=== PATIENT | female | born 1935 | race Two or more races ===

== ENCOUNTER 2017-08-07 21:33 | Observation (INO) | payer OTHER ==
[2017-08-07] MEDS ORDERED: NITROGLYCERIN SUBLINGUAL 1/150 0.4 MG TAB ONE (21:58)
[2017-08-07] MEDS ORDERED: NITROGLYCERIN 2% OINTMENT - 1GM PACKET TD ONE ×2 (21:58→21:59)
[2017-08-07] MEDS ORDERED: NITROGLYCERIN SUBLINGUAL 1/150 0.4 MG TAB SL ONE (21:58)
[2017-08-07] MEDS ORDERED: SODIUM CHLORIDE 0.9% 500 ML INFUS.BAG IV ONE (22:01)
--- NOTE | 2017-08-07 22:04 | PDOC ---
History of Present Illness - General Chief Complaint: Nausea/Vomiting Stated Complaint: DIZZINESS, N/V, HTN Time Seen by Provider: 08/07/17 21:51 History Source: Patient, Family - History of Present Illness Initial Comments: 08/07/17 22:02 Pt has HTN today and dizzness and she vomited today after eating pork and rice that was cooked by a friend and given to her 2 days ago. Pt admits to eating salty foods lately; yesterday she attended a wedding and all week she has been eating a small bag of salty chips at work. Timing/Duration: 1 week Severity: moderate Associated Symptoms: reports: nausea/vomiting Beta Lucina Taken at Home(Core Measure): No Beta Lucina Not Indicated at this Time(Core Measure): No Past History - Travel Traveled outside of the country in the last 30 days: No Close contact w/someone who was outside of country & ill: No - Past Medical History Allergies/Adverse Reactions: Allergies Allergy/AdvReac Type Severity Reaction Status Date / Time No Known Allergies Allergy Verified 08/07/17 21:43 Home Medications: Ambulatory Orders Multivitamin W-Minerals/Lutein [Centrum Silver Tablet] 1 each PO 2-3x/wk tablet 04/04/13 Lonnie/D3/Mag11/Zinc/Back End Developer/Diego/Bor [Caltrate 600+D Plus Tablet] 1 each PO ASDIR Nitrofurantoin Monohyd/M-Cryst [Macrobid -] 100 mg PO BID #14 capsule 08/07/17 COPD: No HTN: Yes Hypercholesterolemia: Yes Other medical history: GOUT - Suicide/Smoking/Psychosocial Hx Smoking History: Never smoked Have you smoked in the past 12 months: No Information on smoking cessation initiated: No Hx Alcohol Use: No Drug/Substance Use Hx: No Substance Use Type: None *Physical Exam - Vital Signs Last Vital Signs Temp Pulse Resp BP Pulse Ox 98.5 F 112 H 18 185/86 100 08/07/17 21:40 08/07/17 21:40 08/07/17 21:40 08/07/17 21:40 08/07/17 21:40 Heart Score/ECG Review - History History: Slightly suspicious - Electrocardiogram EKG: Normal - Age Age: >/= 65 - Risk Factors Risk Factors Heart Score: Yes Hx Hypertension - ECG Intrepretation Rhythm: Regular Rhythm ED Treatment Course - LABORATORY CBC & Chemistry Diagram: 08/07/17 22:10 08/07/17 22:10 - RADIOLOGY Radiology Studies Ordered: Category Date Time Status CHEST PA & LAT [RAD] Stat Radiology 08/07/17 21:52 Ordered Medical Decision Making - Medical Decision Making 08/07/17 23:31 Patient Name: CHELA HIGGINBOTHAM THIS IS A PRELIMINARY REPORT FROM [facility] EXAM DATE AND TIME: 2017-08-07 22:22:41 IMAGES: 68 EXAM: CT Head Without Intravenous Contrast CLINICAL HISTORY: dizziness high bp TECHNIQUE: Axial computed tomography images of the head/brain without intravenous contrast. This CT exam was performed using one or more of the following dose reduction techniques: Automated exposure control, Adjustment of the mA and/or kV according to patient size, Use of iterative reconstruction technique. COMPARISON: No relevant prior studies available. FINDINGS: LIMITATIONS: The patient's head is rotated in the gantry which causes artifactual asymmetries to the skull and intracranial contents. BRAIN: Minimal patchy and focal areas of low-attenuation are present in the brain.This is more prominent on the RIGHT. The age of this finding is indeterminate and this may be acute and/or chronic. Followup with MRI should be considered. NO hemorrhage or mass. VENTRICLES: NO acute changes are demonstrated. No ventriculomegaly. BONES/JOINTS: Calvarium and skull base demonstrate NO acute changes. SOFT TISSUES: NO acute changes are demonstrated. VASCULATURE: Mild atherosclerotic vascular calcifications are present. SINUSES: The paranasal sinuses demonstrate NO opacification or fluid levels. MASTOID AIR CELLS: The mastoid air cells and middle ear regions demonstrate NO evidence of fluid or opacification. IMPRESSION: 1. > FINDING CONSIDERED CRITICAL TO PATIENT CARE:Minimal patchy and focal areas of low-attenuation are present in the brain.This is more prominent on the RIGHT. The age of this finding is indeterminate and this may be acute and/or chronic. Followup with MRI should be considered. 2. NO evidence of intracranial hemorrhage or mass. THIS DOCUMENT HAS BEEN ELECTRONICALLY SIGNED *DC/Admit/Observation/Transfer Diagnosis at time of Disposition: Dizziness, nonspecific, Abnormal head CT - Discharge Dispostion Condition at time of disposition: Guarded Decision to Admit order: Yes - Prescriptions Prescriptions: Nitrofurantoin Monohyd/M-Cryst [Macrobid -] 100 mg PO BID #14 capsule - Referrals Referrals: Jason Winters MD [Primary Care Provider] - - Patient Instructions - Post Discharge Activity
[2017-08-07 22:13] LABS: URINE APPEARANCE Clear; URINE BILIRUBIN Negative (NEGATIVE); URINE GLUCOSE (UA) Negative (NEGATIVE); URINE KETONE Negative (NEGATIVE); URINE LEUK ESTERASE Negative (NEGATIVE); URINE NITRITE Negative (NEGATIVE); URINE UROBILINOGEN 0.2 (0.2-1.0)
[2017-08-07 22:18] LABS: URINE COLOR YELLOW; URINE PROTEIN 3+ (NEGATIVE)
[2017-08-07 22:22] LABS: BASO % 0.9 % (0-2.0); EOS % 2.9 % (0-4.5); HEMATOCRIT 33.5 % (32.4-45.2); HEMOGLOBIN 11.3 GM/dl (10.7-15.3); LYMPH % 28.5 % (8-40); MCH 32.3 pg (25.7-33.7); MCHC 33.8 g/dl (32.0-36.0); MEAN CELL VOLUME 95.6 fl (80-96); MEAN PLT VOLUME 7.6 fl (7.5-11.1); NEUT % 64.7 % (42.8-82.8); PLATELET COUNT 225 K/MM3 (134-434); RDW 14.9 % (11.6-15.6); WHITE BLOOD COUNT 6.1 K/mm3 (4.0-10.8)
[2017-08-07 22:37] LABS: ACTIVATED PTT 32.3 SECONDS (24.0-38.9)
[2017-08-07 22:38] LABS: ALBUMIN 4.2 g/dl (3.5-5.0); ALK PHOS 77 U/L (32-92); ANION GAP 9 (8-16); BLOOD UREA NITROGEN 32 mg/dl (7-18); CALCIUM 9.6 mg/dl (8.4-10.2); CHLORIDE 103 mmol/L (98-107); CO2 23 mmol/L (22-28); CREATININE 1.5 mg/dl (0.6-1.3); GLUCOSE,RANDOM 134 mg/dl (74-106); POTASSIUM 4.3 mmol/L (3.5-5.1); SGOT/AST 32 U/L (10-42); SGPT/ALT 22 U/L (10-40); SODIUM 135 mmol/L (136-145); TOT PROT 7.4 g/dl (6.4-8.3)
[2017-08-07 22:41] LABS: INR 0.96 (0.82-1.09); PROTHROMBIN TIME (PATIENT) 10.8 SEC (10.2-13.0)
[2017-08-07 22:57] LABS: EPI CELLS 0-3 /HPF; URINE HYALINE CAST 0-1 /lpf
[2017-08-07] MEDS ORDERED: NITROFURANTOIN MACROCRYSTAL 50 MG CAPSULE (FP) PO SCH (23:15)
[2017-08-07] MEDS ORDERED: NITROFURANTOIN MACROCRYSTAL 50 MG CAPSULE (FP) PO ONE (23:15)
[2017-08-07 23:20] LABS: BILIRUBIN,TOTAL < 0.5 mg/dl (0.2-1.0)
[2017-08-07] MEDS ORDERED: NITROFURANTOIN MACROCRYSTAL 50 MG CAPSULE (FP) ONE (23:23)
[2017-08-07] MEDS ORDERED: ASPIRIN 81 MG CHEWABLE TABLETS PO ONE (23:56)
[2017-08-08] MEDS ORDERED: ASPIRIN 81 MG CHEWABLE TABLETS ONE (00:06)
[2017-08-08] MEDS ORDERED: PATIENT'S OWN MEDICATION (NON-FORMULARY) (Cal/D3/Mag11/Zinc/Cop/Mang/Bor [Caltrate 600+D P PO SCH (00:30)
[2017-08-08 01:50] VITALS: BMI 22.6
--- NOTE | 2017-08-08 08:12 | HP ---
CHIEF COMPLAINT:dizziness PCP: Dr Winters HISTORY OF PRESENT ILLNESS: Patient is a 81 y/o female with a past medical history of hypertension and hyperlipidemia. Patient reports dizziness with one episode of nausea and vommiting yesterday evening. She attributed her symptoms to eating salty food at a wedding 2 days ago. However, she noted her blood pressure was elevated and sought evaluation in the emergency department. ER course was notable for: (1)b/p 185/86 (2) troponin 0.03 (3) ekg nsr Recent Travel: none PAST MEDICAL HISTORY: htn and hld PAST SURGICAL HISTORY: bilateral cataracts Social History: employed, , resides at home alone Smoking: none Alcohol:none Drugs: none Family History: non contributory Allergies No Known Allergies Allergy (Verified 08/07/17 21:43) HOME MEDICATIONS: Home Medications Medication Instructions Recorded Multivitamin W-Minerals/Lutein 1 each PO 2-3x/wk tablet 04/04/13 [Centrum Silver Tablet] Lonnie/D3/Mag11/Zinc/Tube Lancer/Diego/Bor 1 each PO ASDIR 08/07/17 [Caltrate 600+D Plus Tablet] Nitrofurantoin Monohyd/M-Cryst 100 mg PO BID #14 capsule 08/07/17 [Macrobid -] REVIEW OF SYSTEMS CONSTITUTIONAL: Absent: fever, chills, diaphoresis, generalized weakness, malaise, loss of appetite, weight change HEENT: Absent: rhinorrhea, nasal congestion, throat pain, throat swelling, difficulty swallowing, mouth swelling, ear pain, eye pain, visual changes CARDIOVASCULAR: present: lightheadedness, Absent: chest pain, syncope, palpitations, irregular heart rate, peripheral edema RESPIRATORY: Absent: cough, shortness of breath, dyspnea with exertion, orthopnea, wheezing, stridor, hemoptysis GASTROINTESTINAL: Absent: abdominal pain, abdominal distension, nausea, vomiting, diarrhea, constipation, melena, hematochezia GENITOURINARY: Absent: dysuria, frequency, urgency, hesitancy, hematuria, flank pain, genital pain MUSCULOSKELETAL: Absent: myalgia, arthralgia, joint swelling, back pain, neck pain SKIN: Absent: rash, itching, pallor HEMATOLOGIC/IMMUNOLOGIC: Absent: easy bleeding, easy bruising, lymphadenopathy, frequent infections ENDOCRINE: Absent: unexplained weight gain, unexplained weight loss, heat intolerance, cold intolerance NEUROLOGIC: Absent: headache, focal weakness or paresthesias, dizziness, unsteady gait, seizure, mental status changes, bladder or bowel incontinence PSYCHIATRIC: Absent: anxiety, depression, suicidal or homicidal ideation, hallucinations. PHYSICAL EXAMINATION Vital Signs - 24 hr 08/07/17 08/07/17 08/08/17 21:40 23:18 00:16 Temperature 98.5 F Pulse Rate 112 H Pulse Rate [ Left] Respiratory 18 20 Rate Blood Pressure 185/86 Blood Pressure 144/85 [Left] O2 Sat by Pulse 100 Oximetry (%) 08/08/17 08/08/17 08/08/17 01:15 01:35 08:03 Temperature 98.1 F Pulse Rate 98 H 91 H Pulse Rate [ 97 H Left] Respiratory 18 20 Rate Blood Pressure 164/78 167/66 Blood Pressure 157/90 [Left] O2 Sat by Pulse 99 Oximetry (%) Selected Entries 08/08/17 08/08/17 01:35 09:00 Blood Pressure 164/78 Blood Pressure 150/63 [Right side Sitting] Blood Pressure 147/62 [Right side Standing] Blood Pressure 140/59 [Right side Supine] GENERAL: Awake, alert, and fully oriented, in no acute distress. HEAD: Normal with no signs of trauma. EYES: Pupils equal, round and reactive to light, extraocular movements intact, sclera anicteric, conjunctiva clear. No lid lag. EARS, NOSE, THROAT: Ears normal, nares patent, oropharynx clear without exudates. Moist mucous membranes. NECK: Normal range of motion, supple without lymphadenopathy, JVD, or masses. LUNGS: Breath sounds equal, clear to auscultation bilaterally. No wheezes, and no crackles. No accessory muscle use. HEART: Regular rate and rhythm, normal S1 and S2 without murmur, rub or gallop. ABDOMEN: Soft, nontender, not distended, normoactive bowel sounds, no guarding, no rebound, no masses. No hepatomegaly or splenomegaly. MUSCULOSKELETAL: Normal range of motion at all joints. No bony deformities or tenderness. No CVA tenderness. UPPER EXTREMITIES: 2+ pulses, warm, well-perfused. No cyanosis. No clubbing. No peripheral edema. LOWER EXTREMITIES: 2+ pulses, warm, well-perfused. No calf tenderness. No peripheral edema. NEUROLOGICAL: Cranial nerves II-XII intact. Normal speech. Normal gait. PSYCHIATRIC: Cooperative. Good eye contact. Appropriate mood and affect. SKIN: Warm, dry, normal turgor, no rashes or lesions noted, normal capillary refill. Laboratory Results - last 24 hr 08/07/17 08/07/17 08/07/17 22:05 22:10 22:10 WBC 6.1 RBC 3.50 L Hgb 11.3 Hct 33.5 MCV 95.6 MCH 32.3 MCHC 33.8 RDW 14.9 Plt Count 225 MPV 7.6 Neutrophils % 64.7 Lymphocytes % 28.5 Monocytes % 3.0 L Eosinophils % 2.9 Basophils % 0.9 PT with INR INR PTT (Actin FS) Cancelled Sodium Potassium Chloride Carbon Dioxide Anion Gap BUN Creatinine Creat Clearance w eGFR Random Glucose Calcium Phosphorus Total Bilirubin AST ALT Alkaline Phosphatase Creatine Kinase Troponin I Total Protein Albumin TSH Urine Color Yellow Urine Appearance Clear Urine pH 5.0 Ur Specific [place] 1.015 Urine Protein 3+ H Urine Glucose (UA) Negative Urine Ketones Negative Urine Blood 2+ H Urine Nitrite Negative Urine Bilirubin Negative Urine Urobilinogen 0.2 Ur Leukocyte Esterase Negative Urine RBC 4-6 Urine WBC 5-10 Ur Epithelial Cells 0-3 Hyaline Casts 0-1 08/07/17 08/07/17 08/07/17 22:10 22:10 22:10 WBC RBC Hgb Hct MCV MCH MCHC RDW Plt Count MPV Neutrophils % Lymphocytes % Monocytes % Eosinophils % Basophils % PT with INR 10.8 INR 0.96 L PTT (Actin FS) 32.3 Sodium 135 L Potassium 4.3 Chloride 103 Carbon Dioxide 23 Anion Gap 9 BUN 32 H Creatinine 1.5 H Creat Clearance w eGFR 33.25 Random Glucose 134 H D Calcium 9.6 Phosphorus Total Bilirubin < 0.5 AST 32 D ALT 22 D Alkaline Phosphatase 77 Creatine Kinase Troponin I < 0.03 Total Protein 7.4 Albumin 4.2 TSH Urine Color Urine Appearance Urine pH Ur Specific [place] Urine Protein Urine Glucose (UA) Urine Ketones Urine Blood Urine Nitrite Urine Bilirubin Urine Urobilinogen Ur Leukocyte Esterase Urine RBC Urine WBC Ur Epithelial Cells Hyaline Casts 08/07/17 08/07/17 22:10 22:10 WBC RBC Hgb Hct MCV MCH MCHC RDW Plt Count MPV Neutrophils % Lymphocytes % Monocytes % Eosinophils % Basophils % PT with INR INR PTT (Actin FS) Sodium Potassium Chloride Carbon Dioxide Anion Gap BUN Creatinine Creat Clearance w eGFR Random Glucose Calcium Phosphorus 3.5 Total Bilirubin AST ALT Alkaline Phosphatase Creatine Kinase 113 Troponin I Total Protein Albumin TSH 2.39 Urine Color Urine Appearance Urine pH Ur Specific [place] Urine Protein Urine Glucose (UA) Urine Ketones Urine Blood Urine Nitrite Urine Bilirubin Urine Urobilinogen Ur Leukocyte Esterase Urine RBC Urine WBC Ur Epithelial Cells Hyaline Casts ASSESSMENT/PLAN: 1) cardiovascular hypertension - b/p noted to be above goal, will increase ramipril to 5mg - strict monitoring of b/p q4h - pending echo, troponin x 2 wnl, continuos cardiac monitoring hyperlipidemia - pending lipid profile - continue lipitor 2) neuro dizziness - pt reports dizziness has resolved, likely secondary to hypertension, ct of head reviewed, will order mri of brain f/e/n -low sodium diet - replete electrolytes prn ppx - oob - less than 2mn admission will defer AC dispo: pt requires telemetry observation plan of care discussed with patient's daughter Lenora Gaspar MD, all questions answered and agrees with plan Visit type - Emergency Visit Emergency Visit: Yes ED Registration Date: 08/08/17 Care time: The patient presented to the Emergency Department on the above date and was hospitalized for further evaluation of their emergent condition. - New Patient This patient is new to me today: Yes Date on this admission: 08/09/17 - Critical Care Critical Care patient: No Hospitalist Screening - Colonoscopy Questionnaire Colonoscopy Questionnaire: Colonoscopy Questionnaire - Patient: 50 - 75 years old and never had a screening colonoscopy: Yes History of colon or rectal polyps, or CA: No History of IBD, Crohn's disease or UC: No History of abdominal radiation therapy as a child: No - Relative: 1 with colon or rectal CA, or polyps at age 60 or younger: No Colon or rectal CA diagnosed at age 45 or younger: No Multiple relatives with colon or rectal CA: No - Outcome: Screening Result: Positive Screen
[2017-08-08 08:24] LABS: ANION GAP 6 (8-16); BLOOD UREA NITROGEN 29 mg/dl (7-18); CALCIUM 9.3 mg/dl (8.4-10.2); CHLORIDE 109 mmol/L (98-107); CO2 22 mmol/L (22-28); CREATININE 1.3 mg/dl (0.6-1.3); GLUCOSE,RANDOM 97 mg/dl (74-106); POTASSIUM 4.7 mmol/L (3.5-5.1); SODIUM 137 mmol/L (136-145)
[2017-08-08 08:33] LABS: BASO % 0.7 % (0-2.0); EOS % 1.8 % (0-4.5); HEMATOCRIT 30.3 % (32.4-45.2); LYMPH % 29.5 % (8-40); MCH 30.9 pg (25.7-33.7); MCHC 32.8 g/dl (32.0-36.0); MEAN CELL VOLUME 94.2 fl (80-96); MEAN PLT VOLUME 7.1 fl (7.5-11.1); MONO % 7.2 % (3.8-10.2); NEUT % 60.8 % (42.8-82.8); PLATELET COUNT 242 K/MM3 (134-434); RBC 3.22 M/mm3 (3.60-5.2); RDW 14.3 % (11.6-15.6); WHITE BLOOD COUNT 5.9 K/mm3 (4.0-10.8)
[2017-08-08] MEDS ORDERED: RAMIPRIL 2.5 MG CAPSULE (FP) PO SCH ×2 (10:00)
[2017-08-08] MEDS: ALLOPURINOL 100 MG TABLET (FP) PO SCH (10:40)
[2017-08-08] MEDS: RAMIPRIL 5 MG CAPSULE (FP) PO SCH (10:50)
[2017-08-08 11:07] LABS: CHOLESTEROL 262 mg/dl; HDL CHOLESTEROL 101 mg/dl (29-89); LDL CHOLESTEROL (ONLY DFH) 142 mg/dl; TRIGLYCERIDES 95 mg/dl (35-160)
[2017-08-08] MEDS ORDERED: CALCIUM 500MG/VIT-D 200 UNITS COMBO TABLET (FP) PO SCH (11:19)
[2017-08-08] MEDS ORDERED: ATORVASTATIN CA 20 MG TABLET (FP) PO SCH (22:00)
--- NOTE | 2017-08-08 23:48 | EKG ---
Test Reason : Blood Pressure : / mmHG Vent. Rate : 097 BPM Atrial Rate : 097 BPM P-R Int : 166 ms QRS Dur : 074 ms QT Int : 338 ms P-R-T Axes : 060 038 039 degrees QTc Int : 429 ms NORMAL SINUS RHYTHM POSSIBLE LEFT ATRIAL ENLARGEMENT BORDERLINE ECG NO PREVIOUS ECGS AVAILABLE Confirmed by FARIHA RODRIGUEZ, SEVERIANO ([id number]) on 08/08/2017 11:47:27 PM Referred By: Confirmed By:SEVERIANO FRIED MD
[2017-08-09 06:01] VITALS: TEMP 98.4
[2017-08-09 07:44] VITALS: BP 142/69; PULSE 94
--- NOTE | 2017-08-09 08:58 | DS ---
Physical Exam: SUBJECTIVE: Patient seen and examined, patient is ambulatory at bedside denies any chest pain or shortness of breath patient denies any dizziness. OBJECTIVE: Patient is a 81 y/o female with a past medical history of hypertension and hyperlipidemia. Patient reports dizziness with one episode of nausea and vommiting yesterday evening. She attributed her symptoms to eating salty food at a wedding 2 days ago. However, she noted her blood pressure was elevated and sought evaluation in the emergency department. ER course was notable for: (1)b/p 185/86 (2) troponin 0.03 (3) ekg nsr Vital Signs Period Temp Pulse Resp BP Sys/Smith Pulse Ox Last 24 Hr 98.2 F-98.4 F 83-104 17-20 139-182/54-76 95-95 PHYSICAL EXAM GENERAL: The patient is awake, alert, and fully oriented, in no acute distress. HEAD: Normal with no signs of trauma. EYES: PERRL, extraocular movements intact, sclera anicteric, conjunctiva clear. ENT: Ears normal, nares patent, oropharynx clear without exudates, moist mucous membranes. NECK: Trachea midline, full range of motion, supple. LUNGS: Breath sounds equal, clear to auscultation bilaterally, no wheezes, no crackles, no accessory muscle use. HEART: Regular rate and rhythm, S1, S2 without murmur, rub or gallop. ABDOMEN: Soft, nontender, nondistended, normoactive bowel sounds, no guarding, no rebound, no hepatosplenomegaly, no masses. EXTREMITIES: 2+ pulses, warm, well-perfused, no edema. NEUROLOGICAL: Cranial nerves II through XII grossly intact. Normal speech, gait not observed. PSYCH: Normal mood, normal affect. SKIN: Warm, dry, normal turgor, no rashes or lesions noted. LABS Laboratory Results - last 24 hr 08/08/17 08/08/17 08/08/17 07:30 14:17 14:17 Creatine Kinase 126 Troponin I < 0.03 Triglycerides 95 D Cholesterol 262 Total LDL Cholesterol 142 HDL Cholesterol 101 H Laboratory Tests 08/07/17 08/08/17 08/08/17 22:10 07:40 14:17 Troponin I < 0.03 < 0.[address] of head no acute pathology MRI of brain no evidence of acute or subacute infarction echo, EF 55-60%, mild AR HOSPITAL COURSE: patient was admitted for the emergency department to telemetry observation for dizziness and uncontrolled hypertension.. Blood pressure was noted to be above goal and ramipril was increased to 5mg with significant improvement. troponin 3 WNL hypertension - b/p noted to be above goal, will increase ramipril to 5mg - strict monitoring of b/p q4h - pending echo, troponin x 2 wnl, continuos cardiac monitoring hyperlipidemia - pending lipid profile - continue lipitor 2) neuro dizziness - pt reports dizziness has resolved, likely secondary to hypertension, mri of brain reviewed PLAN - discussed with Dr Winters agrees with plan, follow up with Dr Winters within 1 week for repeat lab work and blood pressure check - return precautions reviewed Date of Admission:08/08/17 Date of Discharge: 08/09/17 Minutes to complete discharge: 45 Discharge Summary Reason For Visit: DIZZINESS/ABNORMAL HEAD CT Current Active Problems Abnormal head CT (Acute) Dizziness, nonspecific (Acute) Condition: Guarded - Instructions Diet, Activity, Other Instructions: your ramipril was increased to increased 5 mg daily continue all medication as prescribed Please follow-up with your primary care physician Dr. Winters within 1 week for repeat blood pressure and lab work please follow-up with the human resources benefits manager within 2 weeks If any new or persistent symptoms develop please return to the department Referrals: Jason Winters MD [Primary Care Provider] - Evelio Moore MD [Staff Physician] - 2 Weeks Disposition: HOME - Home Medications Comprehensive Discharge Medication List: Ambulatory Orders Multivitamin W-Minerals/Lutein [Centrum Silver Tablet] 1 each PO 2-3x/wk tablet 04/04/13 Lonnie/D3/Mag11/Zinc/Senior Android Software Engineer/Diego/Bor [Caltrate 600+D Plus Tablet] 1 each PO ASDIR Nitrofurantoin Monohyd/M-Cryst [Macrobid -] 100 mg PO BID #14 capsule 08/07/17 This patient is new to me today: No Emergency Visit: Yes ED Registration Date: 08/08/17 Care time: The patient presented to the Emergency Department on the above date and was hospitalized for further evaluation of their emergent condition. Critical Care patient: No - Discharge Referral Referred to [facility] Med P.C.: No
[2017-08-09] MEDS: RAMIPRIL 5 MG CAPSULE (FP) PO SCH (09:20)
[2017-08-09] MEDS: ALLOPURINOL 100 MG TABLET (FP) PO SCH (09:20)
--- NOTE | 2017-08-09 09:38 | CON.CARD ---
Cardiology Consult (text) - Consultation Consultation Note: CC: HTN 81 y/o female with a past medical history of hypertension and hyperlipidemia who p/w dizziness and htn. Patient reports dizziness with one episode of nausea and vomiting yesterday evening. She attributed her symptoms to eating salty food at a wedding the day before symptoms. Also had some wine which she doesn't typically do. However, she noted her blood pressure was elevated and sought evaluation in the emergency department. Outpatient ramipril dose was increased to 5 mg/day here with improvement in bp. sx's now resolved. Denies cp, sob, orthopnea, pnd, le edema, palps,bleeding, claudication or transient neurologic symptoms Denies f/c/s, diarrhea, cough, congestion, rash, h/a, visual disturbances. PAST MEDICAL HISTORY: htn and hld PAST SURGICAL HISTORY: bilateral cataracts Social History: employed, , resides at home alone Smoking: none Alcohol:rare Drugs: none Family History: no premature cad Ambulatory Orders Multivitamin W-Minerals/Lutein [Centrum Silver Tablet] 1 each PO 2-3x/wk tablet 04/04/13 Lonnie/D3/Mag11/Zinc/Park Landscape Architect/Diego/Bor [Caltrate 600+D Plus Tablet] 1 each PO ASDIR Nitrofurantoin Monohyd/M-Cryst [Macrobid -] 100 mg PO BID #14 capsule 08/07/17 Current Medications Allopurinol (Zyloprim -) 100 mg PO DAILY [facility] Last Admin: 08/09/17 09:20 Dose: 100 mg Atorvastatin Calcium (Lipitor -) 20 mg PO HS [facility] Last Admin: 08/08/17 21:59 Dose: 20 mg Calcium Carbonate/Cholecalciferol (Os-Lonnie 500+D -) 1 tab PO ASDIR [facility] Ramipril (Altace -) 5 mg PO DAILY [facility] Last Admin: 08/09/17 09:20 Dose: 5 mg Vital Signs - 24 hr 08/08/17 08/08/17 08/08/17 11:45 11:50 11:53 Temperature Pulse Rate 88 88 90 Respiratory Rate Blood Pressure 156/67 180/72 182/71 O2 Sat by Pulse Oximetry (%) 08/08/17 08/08/17 08/08/17 14:15 14:20 14:27 Temperature 98.2 F Pulse Rate 90 92 H 94 H Respiratory 18 Rate Blood Pressure 139/54 170/61 166/66 O2 Sat by Pulse Oximetry (%) 08/08/17 08/08/17 08/08/17 16:15 20:10 20:11 Temperature Pulse Rate 88 98 H 102 H Respiratory 18 18 Rate Blood Pressure 140/62 153/65 168/70 O2 Sat by Pulse Oximetry (%) 08/08/17 08/08/17 08/09/17 20:13 21:00 01:00 Temperature Pulse Rate 104 H Respiratory 19 19 17 Rate Blood Pressure 159/76 O2 Sat by Pulse 95 Oximetry (%) 08/09/17 08/09/17 08/09/17 04:00 06:00 07:42 Temperature 98.4 F Pulse Rate 83 83 Respiratory 17 Rate Blood Pressure 140/67 O2 Sat by Pulse 95 Oximetry (%) 08/09/17 08/09/17 07:43 07:44 Temperature Pulse Rate 91 H 94 H Respiratory Rate Blood Pressure 147/71 142/69 O2 Sat by Pulse Oximetry (%) Intake & Output 08/07/17 08/08/17 08/09/17 08/10/17 07:59 07:59 07:59 07:59 Weight 112 lb NAD, calm JVD flat, neck supple ctab, nl effort rrr nl s1, s2. no mrg + bs soft nt nd ext without e/c/c + dp/pt, no carotid bruits no jaundice, diaphoresis aaox3 CBC, BMP 08/08/17 07:40 08/08/17 07:40 Laboratory Tests 08/07/17 08/07/17 08/08/17 22:10 22:10 07:30 Creatinine 1.5 H Magnesium Troponin I < 0.03 Triglycerides 95 D Cholesterol 262 Total LDL Cholesterol 142 HDL Cholesterol 101 H 08/08/17 08/08/17 08/08/17 07:40 07:40 14:17 Creatinine Magnesium 2.0 Troponin I < 0.03 < 0.03 Triglycerides Cholesterol Total LDL Cholesterol HDL Cholesterol EKG: sr, early r wave progression. lae. no acute ischemic changes. cxr: no acute pathology Echo 07/2017: nl lv size/fn. rv not well seen. 1+ mac, 1+ ar/tr carotid u/s 07/2017: wnl brain mri 07/2017: mild-mod chronic microvascular ischemic changes. no acute pathology A/P 81 y/o female with a past medical history of hypertension and hyperlipidemia who p/w dizziness and htn. htn/dizziness - bp improved with increased dose of ramipril - carotid u/s brain mri without acute pathology. - ce's neg x 3, ekg without ischemic changes. echo without sig abnormalities. - check orthostatic vitals hl - resume statin, + anemia, can defer asa mild aortic regurgitation - bp control, routine outpatient echo surveillance. Patient informed. stable for d/c from CV perspective with outpatient follow up.
== END 2017-08-09 10:23 | disposition home or self-care (01) ==
LOC: FER 21:33 → FM/S 08-08 01:35
PROVIDERS: ADMIT Internal Medicine; ATTEND Nurse Practitioner Family
PROC: 3E0337Z Introduction of Electrolytic and Water Balance Substance into Peripheral Vein, Percutaneous Approach (ICD-10-PCS; principal; 2017-08-08)
DX: R42 Dizziness and giddiness (principal); R93.0 Abnormal findings on diagnostic imaging of skull and head, not elsewhere classified; I10 Essential (primary) hypertension; E78.5 Hyperlipidemia, unspecified; M10.9 Gout, unspecified
CPT/HCPCS: 36415; 70450-TC; 70551-TC; 71046-TC-FY; 80048; 80053; 80061; 81003; 81015; 82550; 83735; 84100; 84443; 84484; 85025; 85610; 85730; 93005; 93306-TC; 93880-TC; 99283-25; G0378